=== PATIENT | female | born 1995 | race Caucasian/White ===

== ENCOUNTER → 2022-06-13 08:14 | Outpatient (CLI) | payer OTHER, MEDICAID, SELFPAY ==
[2022-06-13 19:52] LABS: Add Manual Diff / Slide Review NO; Basophils Absolute Auto 0 /uL (0-100); Eosinophils Absolute Auto 200 /uL (0-450); Eosinophils Percent Auto 3.7 % (2-4); Hematocrit 38.5 % (36-46); Hemoglobin 13.1 g/dL (12.0-16.0); Lymphocytes Absolute Auto 1500 /uL (1100-4500); Lymphocytes Percent Auto 29.8 % (25-40); Mean Corpuscular HGB Conc 33.9 % (30-36); Mean Corpuscular Hemoglobin 31.4 PG (26-34); Mean Corpuscular Volume 92.5 fL (80-100); Monocytes Absolute Auto 500 /uL (0-900); Monocytes Percent Auto 10.5 % (3-14); Neutrophils Absolute Auto 2800 /uL (1500-7000); Platelet Count 309 X10^3/uL (150-400); Red Blood Cell Count 4.17 X10^6/uL (4.0-5.2); White Blood Cell Count 5.2 X10^3/uL (4.5-11.0)
[2022-06-13 20:06] LABS: Alanine Aminotransferase 18 IU/L (<35); Albumin 4.1 g/dL (3.5-5.0); Albumin Globulin Ratio 1.5 (1.0-2.8); Alkaline Phosphatase 48 U/L (38-126); Aspartate Aminotransferase 23 IU/L (14-36); BUN Creatinine Ratio 19.4 (6-22); Bilirubin Total 0.4 mg/dL (0.2-1.3); Blood Urea Nitrogen 12 mg/dL (7-17); Calcium 9.2 mg/dL (8.4-10.2); Carbon Dioxide 29 mmol/L (22-32); Chloride 100 mmol/L (98-107); Cholesterol 139 mg/dL (140-199); Estimated Glomerular Filt Rate > 60 mL/min (>60); Globulin 2.7 g/dL (1.7-4.1); Glucose 88 mg/dL (70-100); HDL Cholesterol 57 mg/dL (40-60); HEMOLYSIS < 15 (0-50); LDL Cholesterol Calculated 73 mg/dL (<100); Potassium 4.2 mmol/L (3.4-5.1); Sodium 137 mmol/L (137-145); Total Protein 6.8 g/dL (6.3-8.2); Triglycerides 46 mg/dL (35-150)
[2022-06-13 20:37] LABS: TSH w/ Reflex to FT4 0.72 uIU/mL (0.47-4.68)
[2022-06-15 05:45] LABS: Labcorp Hemoglobin (Hb) A1c 5.2 % (4.8-5.6)
== END ==
PROVIDERS: PCP Physician Assistant Medical; Visit Provider Family Medicine
DX: E28.2 Polycystic ovarian syndrome (principal); Z13.29 Encounter for screening for other suspected endocrine disorder
CPT/HCPCS: 80053; 80061; 83036; 84443; 85025